=== PATIENT | male | born 1950 | race Two or more races ===

== ENCOUNTER 2021-03-28 10:17 | Emergency (ER) | payer SELFPAY ==
[~2021-03-28] VITALS: Ht 167.6 cm; Wt 90.7 kg
--- NOTE | 2021-03-28 10:40 | NUR ---
The patient bibs for being tested for covid. The patient c/o having runny nose on the morning, felt like I had fever yesterday. Afebrile at this time. In room air and denies SOB. Respiration regular and unlabored. Will continue to monitor the patient.
[2021-03-28] MEDS ORDERED: P-EP-92 PO (11:12)
[2021-03-28] MEDS ORDERED: METF-440 PO (11:12)
[2021-03-28] MEDS ORDERED: GLIP5TAB13 PO (11:12)
--- NOTE | 2021-03-28 11:29 | NUR ---
PT. VERBALIZED UNDERSTANDING OF AFTERCARE INSTRUCTIONS.Patient discharged to home in stable condition. Written and verbal after care instructions given. Patient verbalizes understanding of instruction.
[2021-03-28 11:33] VITALS: BP 133/79
== END 2021-03-28 11:33 | disposition home or self-care (01) ==
LOC: ER 10:19
DX: B34.9 Viral infection, unspecified (principal); Z20.822 Contact with and (suspected) exposure to COVID-19; Z59.0 Homelessness; E11.9 Type 2 diabetes mellitus without complications; Z79.84 Long term (current) use of oral hypoglycemic drugs; Z76.0 Encounter for issue of repeat prescription
CPT/HCPCS: 71045; 99284; C9803; U0003

== ENCOUNTER 2021-04-03 04:42 | Emergency (ER) | payer SELFPAY ==
[~2021-04-03] VITALS: Ht 175.3 cm; Wt 90.7 kg
[~2021-04-03 04:42] MED LIST: GLIP5TAB13 PO; METF-440 PO; P-EP-92 PO
--- NOTE | 2021-04-03 04:55 | NUR ---
PT BIBS FOR L KNEE INJURY S/P TRIP AND FALL 6 HRS FIGURE MODEL. DENIED HITTING THE HEAD. PT ALERT AND ORIENTED X3. PT PRESENTS WITH NON LABORED BREATHING.
[2021-04-03] MEDS ORDERED: IBUPROFEN 400 MG TABLET ONE (05:19)
[2021-04-03] MEDS ORDERED: IBUPROFEN 400 MG TABLET PO ONE (05:30)
[2021-04-03 05:33] VITALS: BP 133/88
--- NOTE | 2021-04-03 05:33 | NUR ---
Patient discharged to home in stable condition. Written and verbal after care instructions given. Patient verbalizes understanding of instruction.
== END 2021-04-03 05:40 | disposition home or self-care (01) ==
LOC: ER 04:42
DX: S83.8X2A Sprain of other specified parts of left knee, initial encounter (principal); E11.9 Type 2 diabetes mellitus without complications; F17.200 Nicotine dependence, unspecified, uncomplicated; Z59.0 Homelessness; Z79.84 Long term (current) use of oral hypoglycemic drugs; Z79.899 Other long term (current) drug therapy; W01.0XXA Fall on same level from slipping, tripping and stumbling without subsequent striking against object, initial encounter; Y93.89 Activity, other specified; Y92.89 Other specified places as the place of occurrence of the external cause; Y99.8 Other external cause status
CPT/HCPCS: 73564; 99283; A6403